=== PATIENT | male | born 1965 | race Caucasian/White ===

== ENCOUNTER 2017-07-16 10:54 | Emergency (ER) | payer BC, OTHER ==
[2017-07-16 11:10] VITALS: BP 108/78; PULSE 68; TEMP 98.2; BMI 30.5
[2017-07-16] MEDS ORDERED: LIDOCAINE HCL 2% (20ML MULTI-DOSE VIAL) NR ONE (11:42)
[2017-07-16] MEDS ORDERED: DIPHTH,PERTUSS(ACELL),TET 0.5 ML DISP.SYRIN IM ONE (12:13)
[2017-07-16] MEDS ORDERED: SULFAMETHOXAZOLE/TRIMETHOPRIM 800MG/160MG D.S. TABLET PO ONE (12:13)
--- NOTE | 2017-07-16 12:13 | PDOC ---
History of Present Illness - General Chief Complaint: Wound Infection Stated Complaint: RIGHT INDEX FINGER INFECTION Time Seen by Provider: 07/16/17 11:23 - History of Present Illness Initial Comments: 07/16/17 12:10 52 M with h/o diabetes presents to ER with 2 weeks of R index finger pain. 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 As he was running his hand over a damaged noyola, he sustained a small cut. He states that it initially became very swollen in the subsequent days, but he did not see a doctor at that time. Since then, he states that the swelling has come down, but he has had residual pain and drainage from the wound. Pt denies F /C. Denies difficulty flexing or extending the finger. Past History - Past Medical History Allergies/Adverse Reactions: Allergies Allergy/AdvReac Type Severity Reaction Status Date / Time No Known Allergies Allergy Verified 07/16/17 10:55 Home Medications: Ambulatory Orders Aspirin [ASA -] 81 mg PO DAILY 06/04/15 Divalproex [Depakote -] 500 mg PO DAILY 06/04/15 Metformin HCl [Glucophage] 1,000 mg PO DAILY 06/04/15 Simvastatin [Zocor -] 20 mg PO HS 06/04/15 Sulfamethoxazole/Trimethoprim [Bactrim Ds -] 1 tab PO BID #14 tablet 07/16/17 Diabetes: Yes (TYPE II) Hypercholesterolemia: Yes Psychiatric Problems: Yes (DEPRESSION) - Suicide/Smoking/Psychosocial Hx Smoking History: Current every day smoker Have you smoked in the past 12 months: Yes Number of Cigarettes Smoked Daily: 30 Information on smoking cessation initiated: Yes 'Breaking Loose' booklet given: 06/04/15 Hx Alcohol Use: Yes (OCCASIONALLY) Drug/Substance Use Hx: No Substance Use Type: Alcohol Review of Systems - Review of Systems Comments:: 07/16/17 12:15 "GENERAL/CONSTITUTIONAL: No fever or chills. No weakness. HEAD, EYES, EARS, NOSE AND THROAT: No change in vision. No ear pain or discharge. No sore throat. CARDIOVASCULAR: No chest pain or shortness of breath. RESPIRATORY: No cough, wheezing, or hemoptysis. GASTROINTESTINAL: No nausea, vomiting, diarrhea or constipation. GENITOURINARY: No dysuria, frequency, or change in urination. MUSCULOSKELETAL: +R index finger pain and swelling. No neck or back pain. SKIN: No rash NEUROLOGIC: No headache, vertigo, loss of consciousness, or change in strength/ sensation. ENDOCRINE: No increased thirst. No abnormal weight change. HEMATOLOGIC/LYMPHATIC: No anemia, easy bleeding, or history of blood clots. ALLERGIC/IMMUNOLOGIC: No hives or skin allergy. " *Physical Exam - Vital Signs Last Vital Signs Temp Pulse Resp BP Pulse Ox 98.2 F 68 18 108/78 100 07/16/17 10:55 07/16/17 10:55 07/16/17 10:55 07/16/17 10:55 07/16/17 10:55 - Physical Exam Comments: 07/16/17 12:15 "GENERAL: Awake, alert, and fully oriented, in no acute distress HEAD: No signs of trauma EYES: PERRLA, EOMI, sclera anicteric, conjunctiva clear ENT: Auricles normal inspection, hearing grossly normal, nares patent, oropharynx clear without exudates. Moist mucosa NECK: Nontender, no stepoffs, Normal ROM, supple, no lymphadenopathy, JVD, or masses LUNGS: Breath sounds equal, clear to auscultation bilaterally. No wheezes, and no crackles HEART: Regular rate and rhythm, normal S1 and S2, no murmurs, rubs or gallops ABDOMEN: Soft, nontender, normoactive bowel sounds. No guarding, no rebound. No masses EXTREMITIES: R 2nd digit with 2cm area of fluctuance, no active drainage, full active range of motion, no pain with passive flexion, no significant surrounding erythema. NEUROLOGICAL: Cranial nerves II through XII intact. 5/5 strength and sensation in all extremities, Normal speech, normal gait " Procedures - Incision and Drainage I&D Site: Right: Other (2nd digit of hand) Betadine cleansed: Yes Anesthesia: 1% Lidocaine Volume(ml): 3 Blade Size: 11 Attempts: 1 Progress: 07/16/17 12:17 2ccs of purulent fluid drained from R 2nd digit abscess Medical Decision Making - Medical Decision Making 07/16/17 12:18 52 M with R index finger paronychia with abscess. No evidence of flexor/ extensor tenosynovitis (full ROM, no pain with passive extension, no sausage digit). - I&D - XR to r/o foreign body - Will DC with bactrim as pt is diabetic - f/u in 48 hours for wound check 07/16/17 13:35 XR negative for foreign body. Pt DC'ed with bactrim *DC/Admit/Observation/Transfer Diagnosis at time of Disposition: Paronychia - Discharge Dispostion Disposition: HOME Condition at time of disposition: Stable - Prescriptions Prescriptions: Sulfamethoxazole/Trimethoprim [Bactrim Ds -] 1 tab PO BID #14 tablet - Referrals Referrals: Luis Antonio Rosales MD [Staff Physician] - - Patient Instructions Printed Discharge Instructions: DI for Paronychia, Smoking Cessation Additional Instructions: Take the antibiotics as prescribed. Return to the ER in 48 hours to have your wound re-evaluated. If you experience worsening pain, swelling ,redness, or any other concerning symptoms, return to the ER immediately. Call the number provided to set up a follow up appointment with a hand surgeon. - Attestations Physician Attestion: 07/16/17 12:22 I, Dr. Gigi Iqbal MD, attest that this document has been prepared under my direction and personally reviewed by me in its entirety. I further attest, that it accurately reflects all work, treatment, procedures and medical decision -making performed by me.
[2017-07-16] MEDS ORDERED: SULFAMETHOXAZOLE/TRIMETHOPRIM 800MG/160MG D.S. TABLET ONE (12:30)
== END 2017-07-16 13:44 | disposition home or self-care (01) ==
LOC: FER 10:54
PROC: 0H9QXZZ Drainage of Finger Nail, External Approach (ICD-10-PCS; principal; 2017-07-16)
DX: L03.011 Cellulitis of right finger (principal)
CPT/HCPCS: 73140-TC-RT; 90715; 99281-25